=== PATIENT | male | born 1955 | race African-American/Black ===

== ENCOUNTER 2021-09-29 15:54 | Outpatient (CLI) | payer OTHER ==
[2021-09-29 17:37] LABS: Bilirubin Neg (Negative); Blood, Urine 10 (Negative); Clarity Clear (Clear); Glucose, Urine (Dipstick) >=1000 mg/dL (Negative); Ketone, Urine Negative (Negative); Leukocyte Negative (Negative); Nitrite Negative (Negative); Protein, Urine (Dipstick) Negative (Neg-Trace); Urobilinogen Normal mg/dL (Less than 2)
[2021-09-29 17:43] LABS: Anion Gap 17 mmol/L (10-20); BUN (Urea Nitrogen) 19 mg/dL (8.4-25.7); Calc. Creatinine Clearance 0 mL/min (70-130); Carbon Dioxide 23 mmol/L (23-31); Chloride 107 mmol/L (98-107); Glucose 89 mg/dL (80-115); Potassium 4.7 mmol/L (3.5-5.1); Sodium 142 mmol/L (136-145)
[2021-09-29 17:46] LABS: Hemoglobin 13.3 g/dL (13.5-17.5); Mean Corpuscular HGB CONC 30.9 g/dL (32.0-36.0); Mean Corpuscular Hemoglobin 26.6 pg (27.0-33.0); Mean Platelet Volume 11.8 fl (7.4-10.4); Platelet Count 224 10x3/uL (150-450); RBC Distribution Width 14.9 % (11.5-14.5); White Blood Cell (WBC) Count 5.5 10x3/uL (3.5-10.5)
[2021-09-29 18:13] LABS: Bacteria/HPF Rare-Few HPF (None Seen); RBC/HPF 0-3 HPF (0-3); Squamous Epithelial 0-3 HPF (0-3); WBC/HPF None Seen HPF (0-3)
[2021-09-30 12:00] LABS: SARS-CoV-2 PCR by NAA DETECTED (NotDetected)
== END 2021-09-29 15:55 | disposition home or self-care (01) ==
LOC: LABBT 15:54
PROVIDERS: ATTEND Urology
DX: U07.1 COVID-19 (principal); Z01.818 Encounter for other preprocedural examination; N52.31 Erectile dysfunction following radical prostatectomy; N39.3 Stress incontinence (female) (male)
CPT/HCPCS: 80048; 81001; 85027; 87086; 93005; 93010; U0003; U0005

== ENCOUNTER 2022-01-05 12:52 | Outpatient (CLI) | payer OTHER | END 2022-01-05 12:53 | disposition home or self-care (01) | LOC: ULT 12:52 | PROVIDERS: ATTEND Internal Medicine Medical Oncology | DX: Z01.810 Encounter for preprocedural cardiovascular examination (principal); I51.7 Cardiomegaly | CPT/HCPCS: 93306 ==